=== PATIENT | male | born 1960 | race Caucasian/White ===

== ENCOUNTER → 2021-09-28 | Day surgery (SDC) | payer OTHER, MEDICARE ==
[~2021-09-28] VITALS: Ht 175 cm; Wt 117.6 kg
[~2021-09-28] MED LIST: ASPIRIN CHEWABL81 MG PO; ASPIRIN EC81 MG PO; ATORVASTATIN CA20 MG PO; BYSTOLIC5 MG PO; COZAAR50 MG PO; FLONASE ALLER15.8 ML; FLOVENT DISKUS50 MCG INH; MELOXICAM15 MG PO; METFORMIN HCL500 M3 PO; PEPCID AC20 MG PO; PERCOCET 5-3251 EACH PO; PROAIR HFA8.5 GM INH; REPAGLINIDE0.5 MG PO; SINGULAIR10 MG PO; SYMBICORT 80-10.2 GM INH; VENTOLIN HFA IN18 GM INH; ZOLOFT100 MG PO
== END | disposition home or self-care (01) ==
LOC: FAS 07:55
DX: K31.9 Disease of stomach and duodenum, unspecified (principal); K29.70 Gastritis, unspecified, without bleeding; K44.9 Diaphragmatic hernia without obstruction or gangrene; K57.30 Diverticulosis of large intestine without perforation or abscess without bleeding; K52.9 Noninfective gastroenteritis and colitis, unspecified; R19.8 Other specified symptoms and signs involving the digestive system and abdomen; K21.9 Gastro-esophageal reflux disease without esophagitis; E11.9 Type 2 diabetes mellitus without complications; I10 Essential (primary) hypertension; M19.90 Unspecified osteoarthritis, unspecified site; J45.909 Unspecified asthma, uncomplicated; F32.A Depression, unspecified; E78.00 Pure hypercholesterolemia, unspecified; E78.5 Hyperlipidemia, unspecified; G47.30 Sleep apnea, unspecified; Z79.82 Long term (current) use of aspirin; Z79.84 Long term (current) use of oral hypoglycemic drugs; Z79.51 Long term (current) use of inhaled steroids; Z79.899 Other long term (current) drug therapy; Z96.649 Presence of unspecified artificial hip joint; Z95.2 Presence of prosthetic heart valve
CPT/HCPCS: 82962; J2250; J2704; J7120